=== PATIENT | male | born 1955 | race Caucasian/White ===

== ENCOUNTER 2022-07-16 10:36 | Observation (INO) | payer OTHER ==
[2022-07-14 11:21] LABS: BASOPHILS # (AUTO) 0.1 (0.0-0.1); BASOPHILS % 1.3 % (0.0-1.0); EOSINOPHILS # (AUTO) 0.2 (0.0-0.4); EOSINOPHILS % 2.1 % (0.0-6.0); HEMATOCRIT 39.6 % (38.2-49.6); HEMOGLOBIN 12.1 g/dL (14.0-18.0); LYMPHOCYTES # (AUTO) 1.8 (1.0-3.2); MEAN CORPUSCULAR HEMOGLOBIN 27.9 pg (28-32); MEAN CORPUSCULAR HGB CONC 30.6 g/dL (31-35); MEAN CORPUSCULAR VOLUME 91.5 fL (81-99); MONOCYTES # (AUTO) 0.6 (0.2-0.8); MONOCYTES % 7.2 % (4.4-11.3); NEUTROPHILS # (AUTO) 5.3 (2.1-6.9); PLATELET COUNT 320 x10e3/uL (140-360); RED BLOOD COUNT 4.33 x10e6/uL (4.3-5.7); RED CELL DISTRIBUTION WIDTH 13.8 % (11.7-14.4)
[2022-07-14 11:38] LABS: INR 0.8; PROTHROMBIN TIME 11.9 seconds (11.9-14.5)
[2022-07-14 11:39] LABS: PARTIAL THROMBOPLASTIN TIME 34.4 seconds (23.8-35.5)
[2022-07-14 11:50] LABS: ALBUMIN 4.1 g/dL (3.5-5.0); ALBUMIN/GLOBULIN RATIO 1.2 (0.8-2.0); ANION GAP 16.3 mmol/L (8-16); CALCIUM 9.4 mg/dL (8.4-10.2); CREATININE, SERUM 0.93 mg/dL (0.72-1.25); POTASSIUM 4.3 mmol/L (3.5-5.1)
[~2022-07-16] VITALS: Ht 167.6 cm; Wt 102.1 kg
[~2022-07-16 10:36] MED LIST: BLOOD PRESSURE; HYDROCHLOROTHIA25 MG PO; LISINOPRIL10 MG PO
[2022-07-16] MEDS ORDERED: IOPAMIDOL 610MG/1ML 300 MG/ML VIAL IV ONE (12:06)
[2022-07-16] MEDS ORDERED: PROPOFOL IV EMULSION 10 MG/ML 20 ML VIAL ONE (12:31)
[2022-07-16] MEDS ORDERED: DEXAMETHASONE SOD PHOS INJ 4 MG/ML SDV ONE (12:31)
[2022-07-16] MEDS ORDERED: SEVOFLURANE INHAL SOLN 250 ML PEN BTL ONE (12:31)
[2022-07-16] MEDS ORDERED: POVIDONE IODINE 0.05% 0.05 % ML PO ONE (12:31)
[2022-07-16] MEDS ORDERED: ONDANSETRON HCL INJ 2MG/ML 2ML 2 MG/ML VIAL ONE (12:31)
[2022-07-16] MEDS ORDERED: KETOROLAC TROMETHAMINE 30 MG/ML VIAL ONE (12:31)
[2022-07-16] MEDS ORDERED: MIDAZOLAM HCL 2 MG/2 ML VIAL ONE (13:08)
[2022-07-16] MEDS ORDERED: FENTANYL CITRATE/PF 100MCG/2 ML INJ ONE ×2 (13:08→15:26)
[2022-07-16] MEDS ORDERED: B&O 60MG R/S 60 MG SUPP PR ONE (13:49)
[2022-07-16] MEDS ORDERED: MUPIROCIN 2% OINT 22 GM TUBE ONE (13:49)
[2022-07-16] MEDS ORDERED: HYDROMORPHONE 1MG/1ML INJ ONE (15:15)
[2022-07-16] MEDS ORDERED: HYDROMORPHONE 2MG/ML 2 MG/ML ML IV PRN (16:15)
[2022-07-16] MEDS ORDERED: B&O 60MG R/S 60 MG SUPP PR PRN (16:15)
[2022-07-16] MEDS: HYDROCHLOROTHIAZIDE 25 MG TAB PO SCH (18:40)
[2022-07-16 20:00] VITALS: BP 148/74
[2022-07-17] VITALS: BP 148/81
[2022-07-17 04:00] VITALS: BP 148/84
[2022-07-17 08:11] VITALS: BP 159/88
[2022-07-17] MEDS: HYDROCHLOROTHIAZIDE 25 MG TAB PO SCH (08:33)
[2022-07-17 08:59] VITALS: BP 159/88
[2022-07-17] MEDS ORDERED: LISINOPRIL 20 MG TAB PO SCH (09:00)
[2022-07-17 12:27] VITALS: BP 158/86
== END 2022-07-17 13:29 | disposition home or self-care (01) ==
LOC: OR 10:36 → PACU V 15:10 → MED/SURG2 19:38
PROVIDERS: ADMIT Urology; ATTEND Urology
DX: D09.0 Carcinoma in situ of bladder (principal); A63.0 Anogenital (venereal) warts; Z01.810 Encounter for preprocedural cardiovascular examination; Z01.812 Encounter for preprocedural laboratory examination; Z01.818 Encounter for other preprocedural examination; Z20.822 Contact with and (suspected) exposure to COVID-19; N40.0 Benign prostatic hyperplasia without lower urinary tract symptoms
CPT/HCPCS: 0223U; 36415; 71046; 74420; 80053; 85025; 85610; 85730; 88304; 88307; 93005; C1758; G0378; J0690; J1100; J1170; J1885; J2250; J2405; J3010